=== PATIENT | male | born 1950 | race Caucasian/White ===

== ENCOUNTER 2020-02-20 18:48 | Emergency (ER) | payer MEDICARE, OTHER, MEDICAID ==
[~2020-02-20] VITALS: Ht 177.8 cm; Wt 59.1 kg
[~2020-02-20 18:48] MED LIST: COLL30OI TOP; DIGO250T2 PO; METO-395 PO; NITR100C PO
[2020-02-20 19:37] VITALS: BP 121/64
== END 2020-02-20 19:39 | disposition home or self-care (01) ==
LOC: ER 18:49
DX: T83.098A Other mechanical complication of other urinary catheter, initial encounter (principal); I48.91 Unspecified atrial fibrillation; K21.9 Gastro-esophageal reflux disease without esophagitis; Z88.0 Allergy status to penicillin; Z88.8 Allergy status to other drugs, medicaments and biological substances; Z79.899 Other long term (current) drug therapy; Y92.89 Other specified places as the place of occurrence of the external cause
CPT/HCPCS: 99284